=== PATIENT | female | born 1975 | race Two or more races ===

== ENCOUNTER 2018-03-12 21:19 | Emergency (ER) | payer OTHER ==
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
[2018-03-12] MEDS ORDERED: IBUPROFEN 800 MG TAB PO ONE (22:28)
[2018-03-12] MEDS ORDERED: CEPHALEXIN 500 MG CAP PO ONE (23:15)
[2018-03-12] MEDS ORDERED: CEPHALEXIN 500MG PREPACK#4 BTL TAKEHOME ONE (23:15)
[2018-03-12 23:25] VITALS: BP 118/68
== END 2018-03-12 23:27 | disposition home or self-care (01) ==
DX: R07.81 Pleurodynia (principal); N30.01 Acute cystitis with hematuria; V04.9 Pedestrian injured in collision with heavy transport vehicle or bus, unspecified whether traffic or nontraffic accident; Y92.9 Unspecified place or not applicable; F17.200 Nicotine dependence, unspecified, uncomplicated; Z90.49 Acquired absence of other specified parts of digestive tract

== ENCOUNTER 2018-04-06 17:26 | Inpatient (IN) | payer SELFPAY ==
[2018-04-06] MEDS ORDERED: fentaNYL 100 MCG/2 ML INJ IVP ONE (17:57)
[2018-04-06] MEDS ORDERED: PROMETHAZINE HCL 25 MG/ML INJ IVP ONE (17:57)
[2018-04-06] MEDS ORDERED: NS 1,000 ML IV ONE ×2 (17:57→19:15)
--- NOTE | 2018-04-06 17:57 | EDPHY ---
General Time Seen by Provider: 04/06/18 17:50 Narrative: CHIEF COMPLAINT: Abdominal pain HISTORY OF PRESENT ILLNESS: Patient presents by private vehicle with her significant other with complaints of left flank and abdominal pain. Pain started yesterday afternoon. Constant duration. Located in the left flank only. Worse with palpation and movement. It is steadily worsened to a 10/10 today. Associated with nausea and 2 episodes of vomiting. No constipation or diarrhea. No fever chills. No rash. No painful urination. No gross hematuria. No previous pain similar to this. Abdominal surgeries include cholecystectomy. REVIEW OF SYSTEMS: 10 systems were reviewed and negative with the exception of the elements mentioned in the history of present illness. PCP: None SPECIALISTS: None PAST MEDICAL HISTORY: Gallstones PAST SURGICAL HISTORY: Cholecystectomy SOCIAL HISTORY: Daily smoker. 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 Lives independently FAMILY HISTORY: Noncontributory EXAMINATION: General Appearance: Alert, no distress. Tearful but consolable. Conversing in full sentences. Head: normocephalic, atraumatic Eyes: Pupils equal and round, no conjunctival pallor or injection ENT, Mouth: Mucous membranes moist Neck: Normal inspection, supple, non-tender Respiratory: Lungs are clear to auscultation Cardiovascular: Regular rate and rhythm Gastrointestinal: Abdomen is soft and nondistended. There is moderate to severe left CVA tenderness. No tympany. No rigidity. No guarding. Bowel sounds present all 4 quadrants. Back: non-tender, no bony abnormalities Neurological: A&O, nonfocal, normal gait Skin: Warm and dry, no rash Extremities: Nontender, no pedal edema Psychiatric: Mood and affect normal DIFFERENTIAL DIAGNOSES: Including but not limited to renal colic, ureteral colic, hydronephrosis, pyelonephritis, UTI, colitis, diverticulitis MDM: 5:25 p.m. Acute left flank and abdominal pain with pain out of proportion to examination. Her vital signs are within normal limits. She does not meet SIRS criteria I do not appreciate any surgical findings on examination. Suspect renal colic versus is diverticulitis or colitis. I have ordered IV medications and laboratory studies are pending. She is tearful but in no acute distress. 6:30 p.m. Laboratory studies reveal mild leukocytosis, urinary tract infection with microscopic hematuria. I re-evaluated the patient her pain is down to 1/10 after medications. I have ordered CT scan to evaluate for possible infected stone. 7:00 p.m. Notified by radiologist Dr. Hernandez. We discussed the findings of the CT abdomen pelvis as documented. No evidence of renal calculus. Patient re-evaluated. She is feeling better but is very mildly tachycardic. Laboratory studies, urinalysis and CT scan combine suggest a likely early pyelonephritis. I discussed with Dr. Rayo. We are in agreement that the patient would best be suited with admission to the hospital for ongoing IV antibiotics. She is agreeable to this plan. 7:20 p.m. Case discussed with hospitalist Dr. Zimmer. He will admit the patient to his service. She is admitted stable condition. She has received 1 L IV fluid and IV Rocephin here. Second L infusing. She is mildly tachycardic but does not meet SIRS criteria. She is improved in her pain control. She is conversing in full sentences admitted stable condition. SUPERVISION: Patient was independently examined, but I discussed the case with my secondary supervising physician Dr. Rayo CONSULTATION: None - History Smoking Status: Current every day smoker - Objective Vital Signs: Initial Vital Signs Heart Rate 101 H 04/06/18 17:42 Respiratory Rate 16 04/06/18 17:42 Blood Pressure 132/95 H 04/06/18 17:42 O2 Sat (%) 95 04/06/18 17:42 O2 Delivery Mode Room Air Allergies/Adverse Reactions: No Known Allergies Allergy (Verified 09/05/11 18:26) Home Medications: Medication Instructions Recorded NK [No Known Home Meds] 04/06/18 Departure - Departure Disposition: [facility] Inpatient Acute Clinical Impression: Acute pyelonephritis, Acute left flank pain, Enteritis Condition: Good Referrals: NONE *PRIMARY CARE P,. [Primary Care Provider] - As per Instructions
[2018-04-06 18:12] LABS: PLATELET COUNT 336 10^3/uL (150-400)
[2018-04-06] MEDS ORDERED: KETOROLAC 30 MG/1 ML SDV IVP ONE (18:31)
[2018-04-06] MEDS: oxyCODONE IR 5 MG TAB PO PRN (21:18)
--- NOTE | 2018-04-06 22:05 | PDGENHP ---
History and Physical - Chief Complaint left flank pain - History of Present Illness 42yo F with no significant PMH presents with acute onset left flank pain yesterday that has progressively worsened. This is associated with nausea and two episodes of non-bloody emesis today in addition to chills and subjective fever. She denies urinary symptoms, diarrhea. Never had kidney stones before. No sick contacts. In the ED, she was found to be tachycardic with mild leukocytosis and infected-appearing UA. She is being admitted for management of suspected pyelonephritis with IV antibiotics. Case discussed with ED provider Cali Garcia. History Information - Allergies/Home Medication List Allergies/Adverse Reactions: No Known Allergies Allergy (Verified 09/05/11 18:26) Home Medications: NK [No Known Home Meds] 04/06/18 [Last Taken Unknown] I have personally reviewed and updated: family history, medical history, social history, surgical history - Past Medical History Additional medical history: cholelithiasis - Surgical History Reports: cholecystectomy - Family History Positive for: non-pertinent - Social History Smoking Status: Current every day smoker Alcohol Use: None Drug Use: Marijuana Additional social history: Lives independently, works as rn resource nurse. She enjoys skateboarding. Review of Systems Review of Systems: ROS: 10pt was reviewed & negative except for what was stated in HPI & below Physical Exam Physical Exam: Temp Pulse Resp BP Pulse Ox 37.4 C 93 16 118/80 98 04/06/18 20:47 04/06/18 20:47 04/06/18 20:47 04/06/18 20:47 04/06/18 20:47 Constitutional: uncomfortable Eyes: PERRL, anicteric sclera, EOMI Ears, Nose, Mouth, Throat: moist mucous membranes, hearing normal, ears appear normal, no oral mucosal ulcers Cardiovascular: regular rate and rhythym, no murmur, rub, or gallop, No edema Respiratory: no respiratory distress, no rales or rhonchi, clear to auscultation Gastrointestinal: normoactive bowel sounds, soft, non-tender abdomen, no palpable masses Genitourinary: other (exquisite left flank pain) Skin: warm, normal color, no rashes or abrasions, no fluctuance, no induration, No mottled Musculoskeletal: full muscle strength, no muscle tenderness, normal joint ROM, no joint effusions Neurologic: AAOx3 Psychiatric: interacting appropriately, not anxious, not encephalopathic, thought process linear Lab Data & Imaging Review 04/06/18 18:01 04/06/18 18: WBC 11.59 10^3/uL (3.80-9.50) H 04/06/18 18: RBC 5.04 10^6/uL (4.18-5.33) 04/06/18 18: Hgb 12.3 g/dL (12.6-16.3) L 04/06/18 18: Hct 38.3 % (38.0-47.0) 04/06/18 18: MCV 76.0 fL (81.5-99.8) L 04/06/18 18: MCH 24.4 pg (27.9-34.1) L 04/06/18 18: MCHC 32.1 g/dL (32.4-36.7) L 04/06/18 18: RDW 18.6 % (11.5-15.2) H 04/06/18 18: Plt Count 336 10^3/uL (150-400) 04/06/18 18: MPV 9.2 fL (8.7-11.7) 04/06/18 18: Neut % (Auto) 83.9 % (39.3-74.2) H 04/06/18 18: Lymph % (Auto) 7.9 % (15.0-45.0) L 04/06/18 18: Boundary % (Auto) 7.6 % (4.5-13.0) 04/06/18 18: Eos % (Auto) 0.1 % (0.6-7.6) L 04/06/18 18: Baso % (Auto) 0.2 % (0.3-1.7) L 04/06/18 18: Nucleat RBC Rel Count 0.0 % (0.0-0.2) 04/06/18 18: Absolute Neuts (auto) 9.72 10^3/uL (1.70-6.50) H 04/06/18 18: Absolute Lymphs (auto) 0.92 10^3/uL (1.00-3.00) L 04/06/18 18:01 Absolute Monos (auto) 0.88 10^3/uL (0.30-0.80) H 04/06/18 18:01 Absolute Eos (auto) 0.01 10^3/uL (0.03-0.40) L 04/06/18 18:01 Absolute Basos (auto) 0.02 10^3/uL (0.02-0.10) 04/06/18 18: Absolute Nucleated RBC 0.00 10^3/uL (0-0.01) 04/06/18 18: Immature Gran % 0.3 % (0.0-1.1) 04/06/18 18: Immature Gran # 0.04 10^3/uL (0.00-0.10) 04/06/18 18:01 Sodium 137 mEq/L (135-145) 04/06/18 18:01 Potassium 3.8 mEq/L (3.3-5.0) 04/06/18 18: Chloride 101 mEq/L (97-110) 04/06/18 18: Carbon Dioxide 25 mEq/l (22-31) 04/06/18 18: Anion Gap 11 mEq/L (8-16) 04/06/18 18: BUN 7 mg/dL (7-23) 04/06/18 18: Creatinine 0.7 mg/dL (0.6-1.0) 04/06/18 18: Estimated GFR > 60 04/06/18 18: Glucose 97 mg/dL (70-100) 04/06/18 18: Calcium 9.5 mg/dL (8.5-10.4) 04/06/18 18: Total Bilirubin 0.8 mg/dL (0.1-1.4) 04/06/18 18: Conjugated Bilirubin 0.1 mg/dL (0.0-0.5) 04/06/18 18: Unconjugated Bilirubin 0.7 mg/dL (0.0-1.1) 04/06/18 18: AST 22 IU/L (14-46) 04/06/18 18:01 ALT 33 IU/L (9-52) 04/06/18 18: Alkaline Phosphatase 79 IU/L (38-126) 04/06/18 18:01 Total Protein 7.2 g/dL (6.3-8.2) 04/06/18 18:01 Albumin 4.3 g/dL (3.5-5.0) 04/06/18 18:01 Lipase 18 IU/L (23-300) L 04/06/18 18:01 Beta HCG, Qual NEGATIVE 04/06/18 18:01 Urine Color YELLOW 04/06/18 18:14 Urine Appearance HAZY 04/06/18 18:14 Urine pH 7.0 (5.0-7.5) 04/06/18 18:14 Ur Specific [place] 1.012 (1.002-1.030) 04/06/18 18:14 Urine Protein NEGATIVE (NEGATIVE) 04/06/18 18:14 Urine Ketones NEGATIVE (NEGATIVE) 04/06/18 18:14 Urine Blood 1+ (NEGATIVE) H 04/06/18 18:14 Urine Nitrate POSITIVE (NEGATIVE) H 04/06/18 18:14 Urine Bilirubin NEGATIVE (NEGATIVE) 04/06/18 18:14 Urine Urobilinogen NEGATIVE EU (0.2-1.0) 04/06/18 18:14 Ur Leukocyte Esterase TRACE (NEGATIVE) H 04/06/18 18:14 Urine RBC 3-5 /hpf (0-3) H 04/06/18 18:14 Urine WBC 15-25 /hpf (0-3) H 04/06/18 18:14 Ur Epithelial Cells TRACE /lpf (NONE-1+) 04/06/18 18:14 Urine Mucus TRACE /lpf (NONE-1+) 04/06/18 18:14 Urine Glucose NEGATIVE (NEGATIVE) 04/06/18 18:14 Visualized and Interpreted imaging results: Yes Interpretation: CT abd/pelvis without contrast: no urinary calculus, mildly prominent fluid filled loops of small bowel in left lower quadrant Assessment & Plan Assessment: 42yo F smoker presents with acute onset left flank pain with clinical picture consistent with acute pyelonephritis. Plan: #Acute pyelonephritis: Based on flank pain, subjective fever, infected appearing UA. No kidney stone on imaging. - IV ceftriaxone - Follow up urine culture, narrow abx as able - Pain control #Mild sepsis: POA with leukocytosis, tachycardia. - IVF, management as above #Tobacco use: Encouraged cessation. Diet: regular VTE ppx: low risk, SCDs Code: full PCP: none Dispo: Admit under observation for management of above with IV antibiotics.
[2018-04-07] MEDS: oxyCODONE IR 5 MG TAB PO PRN ×4 (02:25→20:19)
[2018-04-07] MEDS: ONDANSETRON DISINTEGRATING 4 MG TAB PO PRN (02:29)
[2018-04-07] MEDS: IBUPROFEN 200 MG TAB PO PRN (07:36)
--- NOTE | 2018-04-07 08:57 | HOSPPROG ---
Hospitalist Progress Note Assessment/Plan: 42 yo F w pyelonephritis, sepsis sepsis: septic physiology has resolved pyelonephritis: ceftriaxone await culture data iron deficiency anemia: IV iron while here ?enteritis: no diarrhea follow proph: scd's dispo: inpatient Subjective: feels "miderable". ct images reviewed/interpreted by me Objective: Vital Signs Temp Pulse Resp BP Pulse Ox 36.8 C 73 16 137/90 H 95 04/07/18 07:30 04/07/18 07:30 04/07/18 07:30 04/07/18 07:30 04/07/18 07:30 Laboratory Results 04/07/18 04:16 04/07/18 04:20 04/06/18 04/07/18 04/08/18 05:59 05:59 05:59 Intake Total 2220 Balance 2220 - Physical Exam Constitutional: no apparent distress, appears nourished Eyes: PERRL, anicteric sclera Ears, Nose, Mouth, Throat: moist mucous membranes, hearing normal Cardiovascular: regular rate and rhythym, no murmur, rub, or gallop, other ( borderline tachycardic) Respiratory: no respiratory distress, no rales or rhonchi Gastrointestinal: normoactive bowel sounds, soft, non-tender abdomen Genitourinary: other (L flank pain), No jacobs in urethra Skin: warm, normal color Musculoskeletal: full muscle strength Neurologic: AAOx3 ICD10 Worksheet Patient Problems: Problems Problem Status Onset Acute left flank pain Acute Acute pyelonephritis Acute Enteritis Acute MRSA - Methicillin resistant Staphylococcus aureus infection Active
[2018-04-07] MEDS: ACETAMINOPHEN 325 MG TAB PO PRN ×2 (10:00→20:18)
--- NOTE | 2018-04-07 10:10 | ASMTCMCOM ---
CM Note CM Note Notes: Chart reviewed. 42 year old female with no significant medical history admitted via ED for complaints of severe left flank pain. She has preliminary diagnosis of pyelonephritis Plan of care still unclear. Plan: Likely to dc without services when medically cleared for home. Date Signed: 04/07/2018 10:10 AM Electronically Signed By:Colette Villanueva RN
[2018-04-07] MEDS: SODIUM FERRIC GLUCONAT/SUCROSE 125 MG in NS 100 ML IV SCH (10:36)
--- NOTE | 2018-04-07 15:20 | PDMN ---
Medical Necessity Medical necessity: Change to inpt as of 04/07/18 @ 1504. Pt meets inpt criteria per MD order and MCG M-300, Urinary Tract Infection, A-2 days. 42 y/o admitted w /pyelonephritis and sepsis presenting w/flank pain, nausea, vomiting, continues to feel poorly today. Pt also w/low iron at 22 and will receive IV iron. Anticipate>2MN for ongoing IV abx's, following urine cultures, cont med nec eval /treatment.
[2018-04-07] MEDS: ONDANSETRON 4 MG/2 ML VIAL IVP PRN (20:18)
[2018-04-07] MEDS: NS 1,000 ML IV SCH (20:46)
[2018-04-07] MEDS ORDERED: KETOROLAC 30 MG/1 ML SDV IVP PRN (21:48)
[2018-04-07] MEDS ORDERED: KETOROLAC 30 MG/1 ML SDV IVP ONE (21:48)
--- NOTE | 2018-04-07 22:05 | HOSPPROG ---
Hospitalist Progress Note Assessment/Plan: Contacted by RN for persistent fever despite Tylenol, increase tachycardia, increased left flank pain. -evaluated patient bedside, she indeed has a very warm left flank which is tender to moderate palpation, she also has tenderness on the anterior abdomen on the left side with some mild voluntary guarding, no rebound, bowel sounds are hypoactive, patient is visibly uncomfortable but she is not encephalopathic, heart rhythm is regular but tachycardic -reviewed the chart, appears to have pyelonephritis versus enteritis on CT scan with mildly positive urinalysis and urine culture positive for E coli -reviewed outside records including most recent E coli culture from the vaginal area which was pansensitive -she is currently on IV ceftriaxone, would not change antibiotic management at this time -placed on IV normal saline 150 an hour -give IV Toradol initially for pain management, then morphine or oxycodone thereafter -get blood cultures, CBC to evaluate for worsening leukocytosis, lactic acid level -check EKG to ensure this is a sinus tachycardia -check abdominal plain film upright to ensure no perforation if indeed this is an enteritis, perforation is always possible -signed out the patient to mini shifter to follow-up above Objective: Vital Signs Temp Pulse Resp BP Pulse Ox 37.8 C 105 H 16 139/92 H 95 04/07/18 19:50 04/07/18 19:50 04/07/18 19:50 04/07/18 19:50 04/07/18 19:50 Laboratory Results 04/07/18 04:16 04/07/18 04:20 04/06/18 04/07/18 04/08/18 05:59 05:59 05:59 Intake Total 2220 320 Balance 2220 320 ICD10 Worksheet Patient Problems: Problems Problem Status Onset Acute left flank pain Acute Acute pyelonephritis Acute Enteritis Acute MRSA - Methicillin resistant Staphylococcus aureus infection Active
[2018-04-07 22:26] LABS: PLATELET COUNT 237 10^3/uL (150-400)
[2018-04-08 04:29] LABS: PLATELET COUNT 269 10^3/uL (150-400)
[2018-04-08] MEDS: oxyCODONE IR 5 MG TAB PO PRN ×4 (04:31→18:06)
[2018-04-08] MEDS: SODIUM FERRIC GLUCONAT/SUCROSE 125 MG in NS 100 ML IV SCH (09:48)
--- NOTE | 2018-04-08 09:59 | HOSPPROG ---
Hospitalist Progress Note Assessment/Plan: # sepsis - resolved # pyelonephritis, e.coli resistant to rocephin; resistance likely explains ongoing symptoms - change abx to levaquin # L tubal ligation clip transposition - doubt explains her symptoms as this was not the case previously - discussed with Dr Qiu who will review the AXR - could consider pelvic US if concerned - repeat AXR today # Fe defic anemia - started on IV Fe - needs outpatient workup # elevated LFTs - s/p cholecystectomy - will recheck tomorrow Subjective: still c/o L abd pain and L flank pain; seen last night for fever, tachy, flank pain Objective: Vital Signs Temp Pulse Resp BP Pulse Ox 36.9 C 89 16 124/82 H 96 04/08/18 08:04 04/08/18 08:04 04/08/18 08:04 04/08/18 08:04 04/08/18 08:04 Laboratory Results 04/08/18 04:12 04/08/18 04:12 04/07/18 04/08/18 04/09/18 05:59 05:59 05:59 Intake Total 2220 820 1353 Balance 2220 [address] reviewed AXR personally reviewed - Physical Exam Constitutional: uncomfortable Cardiovascular: regular rate and rhythym, no murmur, rub, or gallop Respiratory: no respiratory distress, no rales or rhonchi, clear to auscultation Gastrointestinal: normoactive bowel sounds, other (S, L sided TTP, L flank pain ; no masses) ICD10 Worksheet Patient Problems: Problems Problem Status Onset Acute left flank pain Acute Acute pyelonephritis Acute Enteritis Acute MRSA - Methicillin resistant Staphylococcus aureus infection Active
[2018-04-08] MEDS: ACETAMINOPHEN 325 MG TAB PO PRN (12:29)
[2018-04-08] MEDS: NS 1,000 ML IV SCH (12:36)
--- NOTE | 2018-04-08 16:40 | CPEKG ---
Test Reason : OPEN Blood Pressure : / mmHG Vent. Rate : 087 BPM Atrial Rate : 087 BPM P-R Int : 129 ms QRS Dur : 087 ms QT Int : 375 ms P-R-T Axes : 072 060 035 degrees QTc Int : 451 ms Sinus rhythm Confirmed by Rj Hernández ([id number]) on 04/08/2018 4:39:53 PM Referred By: Confirmed By:Rj Hernández
[2018-04-08] MEDS: ONDANSETRON DISINTEGRATING 4 MG TAB PO PRN (18:07)
[2018-04-09] MEDS: oxyCODONE IR 5 MG TAB PO PRN ×2 (00:32→04:42)
[2018-04-09] MEDS: NS 1,000 ML IV SCH ×2 (04:42→20:24)
[2018-04-09 04:52] LABS: PLATELET COUNT 261 10^3/uL (150-400)
[2018-04-09] MEDS: ONDANSETRON 4 MG/2 ML VIAL IVP PRN (09:02)
[2018-04-09] MEDS: IBUPROFEN 200 MG TAB PO PRN (09:13)
--- NOTE | 2018-04-09 09:28 | HOSPPROG ---
Hospitalist Progress Note Assessment/Plan: # sepsis - resolved # pyelonephritis, e.coli resistant to rocephin; resistance likely explains ongoing symptoms - cont levaquin # L tubal ligation clip transposition - does not explain symptoms; no further workup # Fe defic anemia - started on IV Fe - needs outpatient workup # elevated LFTs - s/p cholecystectomy - follow up again tomorrow Subjective: feels better today Objective: Vital Signs Temp Pulse Resp BP Pulse Ox 36.8 C 94 12 131/96 H 99 04/09/18 09:15 04/09/18 09:15 04/09/18 09:15 04/09/18 09:15 04/09/18 09:15 Laboratory Results 04/09/18 04:38 04/09/18 04:38 04/08/18 04/09/18 04/10/18 05:59 05:59 05:59 Intake Total 820 2995 Output Total 1900 Balance 820 1095 - Physical Exam Constitutional: no apparent distress, appears nourished Eyes: anicteric sclera Ears, Nose, Mouth, Throat: hearing normal Cardiovascular: No edema Respiratory: No respiratory distress Gastrointestinal: normoactive bowel sounds, soft, non-tender abdomen, No guarding, No rebound, No distension Skin: warm Musculoskeletal: full muscle strength Neurologic: AAOx3 Psychiatric: not anxious ICD10 Worksheet Patient Problems: Problems Problem Status Onset MRSA - Methicillin resistant Staphylococcus aureus infection Active Acute pyelonephritis Acute Acute left flank pain Acute Enteritis Acute
[2018-04-09] MEDS: SODIUM FERRIC GLUCONAT/SUCROSE 125 MG in NS 100 ML IV SCH (10:48)
[2018-04-09] MEDS ORDERED: BISACODYL 10 MG SUPP PR PRN (11:28)
[2018-04-09] MEDS ORDERED: MAGNESIUM HYDROXIDE 30 ML UDCUP PO PRN (11:28)
[2018-04-09] MEDS ORDERED: POLYETHYLENE GLYCOL 3350 17 GM PKT PO PRN (11:28)
[2018-04-09] MEDS ORDERED: LACTULOSE 20 GM/30 ML UDCUP PO PRN (11:28)
--- NOTE | 2018-04-09 13:40 | ASMTCMCOM ---
CM Note CM Note Notes: Patient plan of care reviewed in rounds. 42 year old treated for pyelonephritis and anemia with increased LFT's. She is nearing discharge and is in need of a PCP. [place] [facility] [place] [id number] [address] at 3:30 pm on Saturday with Dr. Yoon Crouch. The patient is aware and the information has been placed in her dc instructions. No other needs identified at this time. Plan: Dc to home when medically cleared. Date Signed: 04/09/2018 01:40 PM Electronically Signed By:Colette Villanueva RN
[2018-04-09] MEDS: SENNOSIDES/DOCUSATE SODIUM TAB PO SCH (20:22)
[2018-04-10 08:17] VITALS: BP 108/65
[2018-04-10] MEDS: IBUPROFEN 200 MG TAB PO PRN (08:52)
[2018-04-10] MEDS: SENNOSIDES/DOCUSATE SODIUM TAB PO SCH (08:56)
--- NOTE | 2018-04-10 09:18 | GDS ---
DISCHARGE DIAGNOSES: 1. Acute pyelonephritis. 2. Sepsis. 3. Iron deficiency anemia. 4. Mildly elevated liver function tests, status post cholecystectomy. HOSPITAL COURSE: A 42-year-old female, who presented with acute pyelonephritis. She was initially t reated with Rocephin. Identification of her E coli showed resistance to Rocephin. She was switched to Levaquin. She had significant improvement in her symptoms after this change was made. On the day of discharge, she is eating, tolerating a full diet, with limited abdominal and flank pain. I recom mend that she follow up with the urologist given the significance of this. There is no kidney stone seen on our scans here. She additionally has mildly elevated LFTs. Her alkaline phosphatase was 244 on discharge, ALT of 56 . She had a cholecystectomy. I recommend that she follow up with her PCP for ongoing management of this. She was also found to have an iron deficiency anemia. Her hemoglobin on discharge is 11. She has re ceived IV iron here. She should receive an outpatient workup for iron deficiency anemia. I have com municated all the above to her. FOLLOWUP: 1. She needs to establish care with a PCP. We made her a followup appointment with Dr. Crouch in [place] for this. She is given this information. 2. Follow up with Urology, given her pyelonephritis. BILLING: I spent more than 30 minutes on the day of discharge coordinating care. Copy requested to: Yoon Crouch [facility] /[id number]/MODL
--- NOTE | 2018-04-10 09:24 | ASDISCHSUM ---
Discharge Information Plan Status:Home with No Needs Medically Cleared to Leave: Discharge Date: CM D/C Disposition:Home, Routine, Self-Care ADT D/C Disposition:Home, Routine, Self-Care Projected Discharge Date: Transportation at D/C:Family Discharge Delay Reason: Follow-Up Date: Discharge Slot: Final Diagnosis: Placement Information Patient Contact Information Contact Name:CAM Relationship:Mother Address: Work Phone: City: [facility] Phone: State/[place] Code: Email: Financial Information Financial Class:Self-Pay Primary Plan Desc:SELF PAY Primary Plan Number: Secondary Plan Desc: Secondary Plan Number: Assessment Information LACE LACE Length of stay for Answers: 3 days current admission Acuity / Level of Answers: Yes Care: Did the patient have an inpatient admission? # of Emergency department Answers: 1-2 visits in the last 6 months Score: 7 Date Signed: 04/10/2018 09:22 AM Electronically Signed By:Janine Hernandez [facility] CM Progress Note CM Note CM Note Notes: Chart reviewed. 42 year old female with no significant medical history admitted via ED for complaints of severe left flank pain. She has preliminary diagnosis of pyelonephritis Plan of care still unclear. Plan: Likely to dc without services when medically cleared for home. Date Signed: 04/07/2018 10:10 AM Electronically Signed By:Colette Villanueva RN [facility] CM Progress Note CM Note CM Note Notes: Patient plan of care reviewed in rounds. 42 year old treated for pyelonephritis and anemia with increased LFT's. She is nearing discharge and is in need of a PCP. [facility] [place] [facility] [id number] [facility]30 pm on Saturday [facility] Dr. Yoon Crouch. The patient is aware and the information has been placed in her dc instructions. No other needs identified at this time. Plan: Dc to home when medically cleared. Date Signed: 04/09/2018 01:40 PM Electronically Signed By:Colette Villanueva RN Intervention Information
== END 2018-04-10 10:38 | disposition home or self-care (01) | DRG 872 ==
LOC: F1N 20:44
PROVIDERS: ADMIT Internal Medicine; ATTEND Internal Medicine
DX: A41.51 Sepsis due to Escherichia coli [E. coli] (principal); N10 Acute pyelonephritis; D50.9 Iron deficiency anemia, unspecified; R94.5 Abnormal results of liver function studies; F17.210 Nicotine dependence, cigarettes, uncomplicated
CPT/HCPCS: 96365; G0378; J0696; J1885; J1956; J2405; J2550; J2916; J3010

== ENCOUNTER 2018-05-31 19:46 | Emergency (ER) | payer OTHER ==
[2018-05-31] MEDS ORDERED: IBUPROFEN 600 MG TAB PO ONE (20:18)
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
[2018-05-31 20:53] VITALS: BP 149/93
== END 2018-05-31 20:53 | disposition home or self-care (01) ==
DX: S16.1XXA Strain of muscle, fascia and tendon at neck level, initial encounter (principal); S46.911A Strain of unspecified muscle, fascia and tendon at shoulder and upper arm level, right arm, initial encounter; S39.012A Strain of muscle, fascia and tendon of lower back, initial encounter; M53.3 Sacrococcygeal disorders, not elsewhere classified; V03.92XA Pedestrian on skateboard injured in collision with car, pick-up truck or van, unspecified whether traffic or nontraffic accident, initial encounter; Y93.51 Activity, roller skating (inline) and skateboarding; Y92.9 Unspecified place or not applicable; Y99.9 Unspecified external cause status